=== PATIENT | male | born 1995 | race Caucasian/White ===

== ENCOUNTER 2017-07-10 13:33 | Emergency (ER) | payer OTHER ==
[~2017-07-10] VITALS: Ht 190.5 cm; Wt 81.0 kg
[2017-07-10 13:51] VITALS: BP 116/67; PULSE 84; RESP 16; TEMP 98.2; O2SAT 98
--- NOTE | 2017-07-10 14:04 | PD ---
HPI Chief Complaint: GI Complaint Time Seen by Provider: 13:47 Travel History International Travel<30 days: No Contact w/Intl Traveler<30days: No Traveled to known affect area: No History of Present Illness HPI This 22-year-old male is complaining of possible food bolus stuck in his esophagus. He had this happen about 10 years ago and had food bolus extracted. At the time he was told he might have eosinophilic esophagitis and follow-up is recommended. He does not think that he had follow-up endoscopies. He does get things stuck quite often when he is eating quickly. Today he took a bite of chicken and feels it got stuck in his esophagus. Initially he was unable to swallow water. He did vomit once and feels like a half of it came up but he feels like there is still a piece stuck in the esophagus. He is able to swallow now he is otherwise well. He indicates the site just behind the sternal notch as the site of obstruction PFSH Social History Tobacco Use: No Allergies-Medications (Allergen,Severity, Reaction): Coded Allergies: No Known Drug Allergies (Verified Allergy, Unknown, 07/10/17) Reported Meds & Prescriptions Reported Meds & Active Scripts Active No Active Prescriptions or Reported Medications Review of Systems Except as stated in HPI: all other systems reviewed are Neg General / Constitutional: No: Fever, Chills Eyes: No: Diploplia HENT: No: Headaches Gastrointestinal: Positive: Dysphagia Physical Exam Narrative GENERAL: Well-developed male SKIN: Focused skin assessment warm/dry. HEAD: Atraumatic. Normocephalic. EYES: Pupils equal and round. No scleral icterus. No injection or drainage. ENT: No nasal bleeding or discharge. Mucous membranes pink and moist. NECK: Trachea midline. No JVD. CARDIOVASCULAR: Regular rate and rhythm. No murmur appreciated. RESPIRATORY: No accessory muscle use. Clear to auscultation. Breath sounds equal bilaterally. GASTROINTESTINAL: Abdomen soft, non-tender, nondistended. Hepatic and splenic margins not palpable. MUSCULOSKELETAL: No obvious deformities. No clubbing. No cyanosis. No edema. NEUROLOGICAL: Awake and alert. No obvious cranial nerve deficits. Motor grossly within normal limits. Normal speech. PSYCHIATRIC: Appropriate mood and affect; insight and judgment normal. Data Data Last Documented VS Vital Signs Date Time Temp Pulse Resp B/P (MAP) Pulse Ox O2 Delivery O2 Flow Rate FiO2 07/10/17 13:51 98.2 84 16 116/67 (83) 98 MDM Medical Decision Making Medical Screen Exam Complete: Yes Emergency Medical Condition: Yes Medical Record Reviewed: Yes Differential Diagnosis Differential includes esophageal obstruction, food impaction, Narrative Course Patient at this time is able to swallow water. He drank a glass of water without any vomiting. I discussed the case with Dr. Jeff araya and she has agreed to see the patient. Diagnosis Primary Impression: Dysphagia Additional Instructions: To Dr. Kinsey's office now Scripts No Active Prescriptions or Reported Meds Disposition: 01 DISCHARGE HOME Condition: Stable Joshua Melendez MD Jul 10, 2017 14:04
[2017-07-10 14:59] VITALS: BP 115/70
== END 2017-07-10 15:00 | disposition home or self-care (01) ==
LOC: PHED 13:33
DX: R13.19 Other dysphagia (principal)
CPT/HCPCS: 99282